=== PATIENT | male | born 1995 | race African-American/Black ===

== ENCOUNTER 2021-03-07 23:30 | Emergency (ER) | payer SELFPAY ==
--- NOTE | 2021-03-08 02:36 | EDPHYS ---
Physician Documentation [facility] Name: Armin Bonner Age: 25 yrs Sex: Male : 1995 Arrival Date: 03/07/2021 Time: 23:35 Bed 5 Private MD: ED Physician Collin Cuello HPI: 03/08 01:50 This 25 yrs old Male presents to ER via Ambulatory with complaints of Cough, Sore mh7 Throat. 01:50 The patient or guardian reports cough, that is intermittent, described as mild, with no mh7 sputum, Congestion, runny nose, sore throat. 01:50 Onset: The symptoms/episode began/occurred 2 day(s) ago. Severity of symptoms: At their mh7 worst the symptoms were mild, last night, in the emergency department the symptoms have improved, markedly. 01:50 Modifying factors: The symptoms are alleviated by nothing, the symptoms are aggravated mh7 by nothing. Associated signs and symptoms: Pertinent positives: rhinorrhea, sore throat, Pertinent negatives: chest pain, diarrhea, ear ache, fever, nausea, vomiting. States that he had exposure to a friend who tested Covid positive.. Historical: - Allergies: 00:01 No Known Allergies; ca1 - Home Meds: 00:01 None [Active]; ca1 - PMHx: 00:01 None; ca1 - PSHx: 00:01 None; ca1 - Immunization history:: Client reports having NOT received the Covid vaccine. - Social history:: Smoking status: Reported history of juuling and/or vaping. Patient uses alcohol, occasionally. ROS: 01:50 Eyes: Negative for injury, pain, redness, and discharge, Neck: Negative for injury, mh7 pain, and swelling, Cardiovascular: Negative for chest pain, palpitations, and edema, Abdomen/GI: Negative for abdominal pain, nausea, vomiting, diarrhea, and constipation, Back: Negative for injury and pain, : Negative for injury, bleeding, discharge, and swelling, MS/Extremity: Negative for injury and deformity, Skin: Negative for injury, rash, and discoloration, Neuro: Negative for headache, weakness, numbness, tingling, and seizure, Psych: Negative for depression, anxiety, suicide ideation, homicidal ideation, and hallucinations, Allergy/Immunology: Negative for hives, rash, and allergies, Endocrine: Negative for neck swelling, polydipsia, polyuria, polyphagia, and marked weight changes, Hematologic/Lymphatic: Negative for swollen nodes, abnormal bleeding, and unusual bruising. Exam: 01:50 Constitutional: This is a well developed, well nourished patient who is awake, alert, mh7 and in no acute distress. Head/Face: Normocephalic, atraumatic. Eyes: Pupils equal round and reactive to light, extra-ocular motions intact. Lids and lashes normal. Conjunctiva and sclera are non-icteric and not injected. Cornea within normal limits. Periorbital areas with no swelling, redness, or edema. ENT: Nares patent. No nasal discharge, no septal abnormalities noted. Tympanic membranes are normal and external auditory canals are clear. Oropharynx with no redness, swelling, or masses, exudates, or evidence of obstruction, uvula midline. Mucous membranes moist. Neck: Trachea midline, no thyromegaly or masses palpated, and no cervical lymphadenopathy. Supple, full range of motion without nuchal rigidity, or vertebral point tenderness. No Meningismus. Chest/axilla: Normal chest wall appearance and motion. Nontender with no deformity. No lesions are appreciated. Cardiovascular: Regular rate and rhythm with a normal S1 and S2. No gallops, murmurs, or rubs. Normal PMI, no JVD. No pulse deficits. Respiratory: Lungs have equal breath sounds bilaterally, clear to auscultation and percussion. No rales, rhonchi or wheezes noted. No increased work of breathing, no retractions or nasal flaring. Abdomen/GI: Soft, non-tender, with normal bowel sounds. No distension or tympany. No guarding or rebound. No evidence of tenderness throughout. Back: No spinal tenderness. No costovertebral tenderness. Full range of motion. Skin: Warm, dry with normal turgor. Normal color with no rashes, no lesions, and no evidence of cellulitis. MS/ Extremity: Pulses equal, no cyanosis. Neurovascular intact. Full, normal range of motion. Neuro: Awake and alert, GCS 15, oriented to person, place, time, and situation. Cranial nerves II-XII grossly intact. Motor strength 5/5 in all extremities. Sensory grossly intact. Cerebellar exam normal. Normal gait. Psych: Awake, alert, with orientation to person, place and time. Behavior, mood, and affect are within normal limits. Vital Signs: 03/07 23:58 BP 104 / 56; Pulse 80; Resp 18 S; Temp 98.6(TE); Pulse Ox 100% on R/A; Weight 81.65 kg ca1 (R); Height 5 ft. 8 in. (172.72 cm) (R); 23:58 Body Mass Index 27.37 (81.65 kg, 172.72 cm) ca1 MDM: 03/08 02:34 Differential Diagnosis: Bronchitis Upper Respiratory Infection Pharyngitis Allergic mh7 Rhinitis Viral Syndrome. Data reviewed: vital signs, nurses notes, lab test result(s), Flu: negative Rapid strep negative, Covid negative. Data interpreted: Pulse oximetry: on room air is 100 %. Interpretation: normal. Counseling: I had a detailed discussion with the patient and/or guardian regarding: the historical points, exam findings, and any diagnostic results supporting the discharge/admit diagnosis, lab results, the need for outpatient follow up, to return to the emergency department if symptoms worsen or persist or if there are any questions or concerns that arise at home. Response to treatment: the patient's symptoms have markedly improved after treatment. Refusal of service: The patient/guardian displays adequate decision making capability and despite a detailed discussion of alternatives, benefits, risks, and consequences refuses: Medications. 02:35 Patient medically screened. [facility] 03/07 23:57 Order name: Flu [facility] 03/07 23:57 Order name: Strep [facility] 03/07 23:58 Order name: Influenza Screen (A ; Complete Time: 02:27 EDID 03/07 23:58 Order name: Group A Streptococcus Rapid Sc; Complete Time: 02:27 EDID 03/08 01:03 Order name: Throat Culture [facility] 03/08 01:40 Order name: SARS-COV-2 RT PCR; Complete Time: 02:27 EDID Administered Medications: No medications were administered Disposition Summary: 03/08/21 02:35 Discharge Ordered Location: Home [facility] Problem: new [facility] Symptoms: have improved [facility] Condition: Stable [facility] Diagnosis - Viral Syndrome [facility] Followup: [facility] - With: Private Physician - When: 1 - 2 days - Reason: Worsening of condition, Recheck today's complaints, Continuance of care, Re-evaluation by your physician Discharge Instructions: - Discharge Summary Sheet mh7 - Viral Respiratory Infection, [id number] [facility] Forms: - Medication Reconciliation Form 7 - Thank You Letter 7 - Antibiotic Education [facility] - Prescription Opioid Use [facility] Signatures: Dispatcher [employer] EDLashaun Leblanc RN RN ca1 Collin Cuello MD MD [facility] Corrections: (The following items were deleted from the chart) 00:24 08 23:58 CORONAVIRUS+MR.LAB.BRZ ordered. EDID EDMS
--- NOTE | 2021-03-08 02:36 | ER ---
Nurse's Notes [facility] Name: Armin Bonner Age: 25 yrs Sex: Male : 1995 Arrival Date: 03/07/2021 Time: 23:35 Bed 5 Private MD: Diagnosis: Viral Syndrome Presentation: 03/07 23:58 Chief complaint: Patient states: body aches, cough, congestion, sore throat, chills ca1 since yesterday. Exposure to Covid+ person. Coronavirus screen: Client denies travel out of the [place] in the last 14 days. chills, congestion, cough unrelated to allergies, sore throat, Client presents with at least one sign or symptom that may indicate coronavirus-19. Standard/surgical mask placed on the client. Provider contacted for isolation considerations. Ebola Screen: Patient negative for fever greater than or equal to 101.5 degrees Fahrenheit, and additional compatible Ebola Virus Disease symptoms Patient denies exposure to infectious person. Patient denies travel to an Ebola-affected area in the 21 days before illness onset. No symptoms or risks identified at this time. Initial Sepsis Screen: Does the patient meet any 2 criteria? No. Patient's initial sepsis screen is negative. Does the patient have a suspected source of infection? No. Patient's initial sepsis screen is negative. Risk Assessment: Do you want to hurt yourself or someone else? Patient reports no desire to harm self or others. Onset of symptoms was March 06, 2021. 23:58 Method Of Arrival: Ambulatory ca1 23:58 Acuity: ELSIE 4 ca1 Historical: - Allergies: 03/08 00:01 No Known Allergies; ca1 - Home Meds: 00:01 None [Active]; ca1 - PMHx: 00:01 None; ca1 - PSHx: 00:01 None; ca1 - Immunization history:: Client reports having NOT received the Covid vaccine. - Social history:: Smoking status: Reported history of juuling and/or vaping. Patient uses alcohol, occasionally. Screenin:01 Abuse screen: Denies threats or abuse. Nutritional screening: No deficits noted. ea Tuberculosis screening: No symptoms or risk factors identified. Fall Risk None identified. Assessment: 01:40 General: Appears in no apparent distress. comfortable, Behavior is calm, cooperative. jb4 Pain: Complains of pain in body aches, soar throat. Pain does not radiate. Pain currently is 2 out of 10 on a pain scale. Quality of pain is described as aching. Neuro: Level of Consciousness is awake, alert, obeys commands, Oriented to person, place, time, situation. Cardiovascular: Patient's skin is warm and dry. Respiratory: Airway is patent Respiratory effort is even, unlabored, Respiratory pattern is regular, symmetrical. GI: No signs and/or symptoms were reported involving the gastrointestinal system. : No signs and/or symptoms were reported regarding the genitourinary system. EENT: Reports pain in throat. Derm: Skin is intact, Skin is dry, Skin is normal, Skin temperature is warm. Musculoskeletal: Circulation, motion, and sensation intact. Range of motion: intact in all extremities. 02:45 Reassessment: Patient and/or family updated on plan of care and expected duration. Pain ea level reassessed. Patient is alert, oriented x 3, equal unlabored respirations, skin warm/dry/pink. Discharge instruction given to patient verbalized the understaging of instruction. Pt left ED ambulatory tolerating well. Vital Signs: 08 23:58 BP 104 / 56; Pulse 80; Resp 18 S; Temp 98.6(TE); Pulse Ox 100% on R/A; Weight 81.65 kg ca1 (R); Height 5 ft. 8 in. (172.72 cm) (R); 23:58 Body Mass Index 27.37 (81.65 kg, 172.72 cm) ca1 ED Course: 23:35 Patient arrived in ED. bp1 03/08 00:00 Triage completed. ca1 00:01 Arm band placed on right wrist. ca1 01:42 Collin Cuello MD is Attending Physician. mh7 01:43 Bar Mullen, RN is Primary Nurse. jb4 02:01 Patient has correct armband on for positive identification. Bed in low position. Call ea light in reach. 02:12 No provider procedures requiring assistance completed. Patient did not have IV access jb4 during this emergency room visit. Administered Medications: No medications were administered Outcome: 02:35 Discharge ordered by . [facility] 02:46 Discharged to home ambulatory. ea 02:46 Condition: stable 02:46 Discharge instructions given to patient, Instructed on discharge instructions, follow up and referral plans. 02:46 Patient left the ED. ea Signatures: Bar Mullen RN RN jb4 Emily Serna RN RN ea Acob, Cheryl, RN RN ca1 Deepika López Maurice, MD MD mh7
[2021-03-08 03:02] VITALS: BP 104/56; TEMP 98.6; O2SAT 100
== END 2021-03-08 02:46 | disposition home or self-care (01) ==
LOC: ER 23:30
DX: B34.9 Viral infection, unspecified (principal); Z20.822 Contact with and (suspected) exposure to COVID-19
CPT/HCPCS: 87070; 87081; 87804; 99281; U0003

== ENCOUNTER 2022-09-04 12:10 | Emergency (ER) | payer SELFPAY ==
--- OUTSIDE RECORDS SUMMARY | 2022-09-04 12:12 | XMS REPORT | Continuity of Care Document ---
:1995 Author Organization [facility] t Address [address] [place] [address] Dr. Loyola [address] [place] [id number] Care Team Providers Name Role Phone Unavailable Unavailable Unavailable Problems This patient has no known problems. Allergies, Adverse Reactions, Alerts This patient has no known allergies or adverse reactions. Medications This patient has no known medications. Procedures This patient has no known procedures. Results This patient has no known results.
[2022-09-04] MEDS ORDERED: KETOROLAC 30 MG/ML INJ ONE (13:26)
--- NOTE | 2022-09-04 13:29 | RAD REPORT ---
EXAM DESCRIPTION: RAD - Knee Right 3 View - 09/04/2022 1:22 pm CLINICAL HISTORY: injury Pain and swelling COMPARISON: No comparisons FINDINGS: No fracture or dislocation seen. Trace suprapatellar joint fluid.
--- NOTE | 2022-09-04 13:29 | RAD REPORT ---
EXAM DESCRIPTION: RAD - Foot Left 3 View - 09/04/2022 1:22 pm CLINICAL HISTORY: fall COMPARISON: Knee Right 3 View dated 09/04/2022 FINDINGS: No fracture or dislocation evident.
--- NOTE | 2022-09-04 14:07 | EDPHYS ---
Physician Documentation [facility] Name: Armin Bonner Age: 27 yrs Sex: Male : 1995 Arrival Date: 09/04/2022 Time: 12:13 Bed 11 Private MD: ED Physician Burak Doty HPI: 09/04 12:41 This 27 yrs old Black Male presents to ER via Ambulatory with complaints of Knee Pain - jmm right, Foot Pain - left. 12:41 Is a 27-year-old male with no chronic medical conditions presents emerged part with m complaints of right knee pain and left foot pain initially was injured apparently a week ago with someone fell on top of him while playing basketball. Patient states that he began to feel better so he decided to play basketball again yesterday which reaggravated both his knee pain and his left foot pain. Denies any other injuries.. Historical: - Allergies: 12:29 No Known Allergies; vg1 - Home Meds: 12:29 None [Active]; vg1 - PMHx: 12:29 None; vg1 - PSHx: 12:29 None; vg1 - Immunization history:: Client reports having NOT received the Covid vaccine. - Social history:: Smoking status: Reported history of juuling and/or vaping. ROS: 12:41 Constitutional: Negative for fever, chills, and weight loss, Cardiovascular: Negative jmm for chest pain, palpitations, and edema, Respiratory: Negative for shortness of breath, cough, wheezing, and pleuritic chest pain. 12:41 MS/extremity: Positive for injury or acute deformity. 12:41 All other systems are negative. Exam: 12:41 Constitutional: This is a well developed, well nourished patient who is awake, alert, jmm and in no acute distress. Head/Face: atraumatic. Eyes: EOMI, no conjunctival erythema appreciated ENT: Moist Mucus Membranes Neck: Trachea midline, Supple Chest/axilla: Normal chest wall appearance and motion. Cardiovascular: Regular rate and rhythm. No edema appreciated Respiratory: Normal respirations, no respiratory distress appreciated Abdomen/GI: Non distended Back: Normal ROM Skin: General appearance color normal 12:41 Musculoskeletal/extremity: Right medial and lateral pain on palpation, compartments are soft, painful flexion and extension, no erythema and induration, full distal dorsalis pulse, neurovascular tact. Pain elicited on palpation of the left dorsum of the foot, no obvious deformity, full dorsalis pedis pulse, compartments are soft, neurovascular intact. 12:41 Skin: Appearance: Color: normal in color, abscess. 12:41 Neuro: Orientation: is normal, Mentation: is normal, Memory: is normal. Vital Signs: 12:28 Weight 72.57 kg (R); Height 5 ft. 8 in. (172.72 cm); Pain 10/10; vg1 12:31 BP 114 / 75; Pulse 75; Resp 16; Temp 98.5(TE); Pulse Ox 98% on R/A; vg1 14:24 BP 121 / 82; Pulse 88; Resp 16; Pulse Ox 100% on R/A; mb9 12:28 Body Mass Index 24.33 (72.57 kg, 172.72 cm) vg1 MDM: 12:41 Patient medically screened. [facility] 12:41 Independent interpretation of the following test(s) in the Emergency Department. [facility] 14:05 Data reviewed: vital signs, nurses notes. Counseling: I had a detailed discussion with ladonna the patient and/or guardian regarding: the historical points, exam findings, and any diagnostic results supporting the discharge/admit diagnosis, the need for outpatient follow up, to return to the emergency department if symptoms worsen or persist or if there are any questions or concerns that arise at home. 14:36 Independent interpretation of the following test(s) in the Emergency Department X-Ray: ladonna My interpretation is No fracture appreciated. ED course: X-rays are negative. Patient given a right knee immobilizer. Advised follow with orthopedics and otherwise given strict return precautions. Patient understood agrees to plan of care.. 09/04 12:46 Order name: Knee Right 3 View XRAY; Complete Time: 13:33 [facility] 09/04 12:46 Order name: Foot Left 3 View XRAY; Complete Time: 13:33 [facility] 09/04 13:33 Order name: Knee Immobilizer; Complete Time: 14:16 [facility] Administered Medications: 13:25 Drug: Ketorolac 30 mg Route: IM; Site: right deltoid; vg1 Disposition: 18:09 Co-signature as Attending Physician, Burak Doty MD I reviewed the patient's care rn provided by the Advanced Practice Provider and agree with the diagnosis and treatment plan. Disposition Summary: 09/04/22 14:06 Discharge Ordered Location: Home [facility] Condition: Stable jm Diagnosis - Other internal derangements of right knee jmm - Sprain of foot [facility] Followup: [facility] - With: Roderick Martins MD - When: 2 - 3 days - Reason: Recheck today's complaints, Continuance of care, Re-evaluation by your physician Discharge Instructions: - Discharge Summary Sheet [facility] - Foot Sprain jm - Acute Knee Pain, Adult [facility] Forms: - Work release form [facility] - Medication Reconciliation Form [facility] - Thank You Letter [facility] - Antibiotic Education [facility] - Prescription Opioid Use [facility] Prescriptions: - Diclofenac Sodium 75 mg Oral Tablet Sustained Release - take 1 tablet by ORAL route 2 times per day; 30 tablet; Refills: 0, Product [facility] Selection Permitted - orphenadrine citrate 100 mg Oral Tablet Sustained Release - take 1 tablet by ORAL route 2 times per day As needed; 20 tablet; Refills: 0, [facility] Product Selection Permitted Signatures: Dispatcher [employer] Jose A Cain PA PA jmm Nieto, Roman, MD MD rn Nessa Hidalgo RN RN vg1
--- NOTE | 2022-09-04 14:07 | ER ---
Nurse's Notes [facility] Name: Armin Bonner Age: 27 yrs Sex: Male : 1995 Arrival Date: 09/04/2022 Time: 12:13 Bed 11 Private MD: Diagnosis: Other internal derangements of right knee;Sprain of foot Presentation: 09/04 12:28 Chief complaint: Patient states: was playing basketball about a week ago and fell on vg1 Right knee and then yesterday was playing basketball and now have Left foot pain when stepping down. Coronavirus screen: Vaccine status: Patient reports being unvaccinated. Client denies travel out of the [place] in the last 14 days. Ebola Screen: Patient negative for fever greater than or equal to 101.5 degrees Fahrenheit, and additional compatible Ebola Virus Disease symptoms Patient denies exposure to infectious person. Initial Sepsis Screen: Does the patient meet any 2 criteria?. Onset of symptoms was August 28, 2022. 12:28 Method Of Arrival: Ambulatory vg1 12:28 Acuity: ELSIE 4 vg1 12:31 Initial Sepsis Screen: Does the patient have a suspected source of infection? No. vg1 Patient's initial sepsis screen is negative. Triage Assessment: 12:29 General: Appears uncomfortable, Behavior is calm, cooperative. Pain: Complains of pain vg1 in Right knee, left foot Pain currently is 10 out of 10 on a pain scale. Pain began x 1 week. Musculoskeletal: Circulation, motion, and sensation intact. Historical: - Allergies: 12:29 No Known Allergies; vg1 - Home Meds: 12:29 None [Active]; vg1 - PMHx: 12:29 None; vg1 - PSHx: 12:29 None; vg1 - Immunization history:: Client reports having NOT received the Covid vaccine. - Social history:: Smoking status: Reported history of juuling and/or vaping. Screenin:30 [facility] ED Fall Risk Assessment (Adult) History of falling in the last 3 months, vg1 including since admission No falls in past 3 months (0 pts) Confusion or Disorientation No (0 pts) Intoxicated or Sedated No (0 pts) Impaired Gait Yes (1 pt) Mobility Assist Device Used No (0 pt) Altered Elimination No (0 pt) Score/Fall Risk Level 0 - 2 = Low Risk Oriented to surroundings, Maintained a safe environment, Educated pt \T\ family on fall prevention, incl call for assistance when getting out of bed, Assessed \T\ reinforced patient's understanding of fall precautions. Abuse screen: Denies threats or abuse. Nutritional screening: No deficits noted. Tuberculosis screening: No symptoms or risk factors identified. Assessment: 12:31 Reassessment: SEE TRIAGE. vg1 13:26 Reassessment: Patient appears in no apparent distress at this time. No changes from vg1 previously documented assessment. Patient and/or family updated on plan of care and expected duration. Pain level reassessed. Patient is alert, oriented x 3, equal unlabored respirations, skin warm/dry/pink. 13:57 Reassessment: Patient and/or family updated on plan of care and expected duration. Pain mb9 level reassessed. Patient is alert, oriented x 3, equal unlabored respirations, skin warm/dry/pink. Patient states symptoms have improved. General: Appears comfortable, Behavior is cooperative. Pain: Complains of pain in left foot and right knee Pain currently is 8 out of 10 on a pain scale. Vital Signs: 12:28 Weight 72.57 kg (R); Height 5 ft. 8 in. (172.72 cm); Pain 10/10; vg1 12:31 BP 114 / 75; Pulse 75; Resp 16; Temp 98.5(TE); Pulse Ox 98% on R/A; vg1 14:24 BP 121 / 82; Pulse 88; Resp 16; Pulse Ox 100% on R/A; mb9 12:28 Body Mass Index 24.33 (72.57 kg, 172.72 cm) vg1 ED Course: 12:13 Patient arrived in ED. am2 12:17 Jose A Butler PA is PHCP. jmm 12:17 Burak Doty MD is Attending Physician. jmm 12:29 Triage completed. vg1 12:29 Arm band placed on. vg1 12:30 Patient has correct armband on for positive identification. Bed in low position. Call vg1 light in reach. 13:22 Nessa Hidalgo, RN is Primary Nurse. vg1 13:24 Knee Right 3 View XRAY In Process Unspecified. EDMS 13:24 Foot Left 3 View XRAY In Process Unspecified. EDMS 14:06 Roderick Martins MD is Referral Physician. ladonna 14:24 No provider procedures requiring assistance completed. Patient did not have IV access mb9 during this emergency room visit. Administered Medications: 13:25 Drug: Ketorolac 30 mg Route: IM; Site: right deltoid; vg1 Medication: 12:31 VIS not applicable for this client. vg1 Outcome: 14:06 Discharge ordered by . ladonna 14:25 Discharged to home ambulatory. mb9 14:25 Condition: stable 14:25 Discharge instructions given to patient, Instructed on discharge instructions, follow up and referral plans. Demonstrated understanding of instructions, follow-up care, medications, Prescriptions given X 2. 14:25 Patient left the ED. mb9 Signatures: Dispatcher [employer] EDMS Jose A Butler PA PA jmm Moreno, Amanda am2 Garcia, Victoria, RN RN vg1 Kiley Tan, RN RN mb9
[2022-09-04 14:46] VITALS: TEMP 98.5
[2022-09-04 14:47] VITALS: BP 121/82; O2SAT 100
== END 2022-09-04 14:25 | disposition home or self-care (01) ==
LOC: ER 12:10
DX: M23.8X1 Other internal derangements of right knee (principal); S93.602A Unspecified sprain of left foot, initial encounter

== ENCOUNTER 2022-09-28 18:19 | Emergency (ER) | payer SELFPAY ==
--- OUTSIDE RECORDS SUMMARY | 2022-09-28 18:21 | XMS REPORT | Continuity of Care Document ---
:1995 Author Organization [facility] t Address [address] [place] [address] Dr. Loy[address] [place] [id number] Care Team Providers Name Role Phone Unavailable Unavailable Unavailable Problems This patient has no known problems. Allergies, Adverse Reactions, Alerts This patient has no known allergies or adverse reactions. Medications This patient has no known medications. Procedures This patient has no known procedures. Results This patient has no known results.
[2022-09-28] MEDS ORDERED: MORPHINE 4 MG/ML SYR ONE (18:51)
[2022-09-28] MEDS ORDERED: KETOROLAC 30 MG/ML INJ ONE (18:51)
[2022-09-28] MEDS ORDERED: LIDOCAINE 4% PATCH ONE (18:52)
[2022-09-28 19:17] LABS: Urine Blood Negative (Negative); Urine Glucose Negative (Negative); Urine Protein Negative (Negative); Urine pH 8.5 (5.0-7.0)
[2022-09-28 19:38] LABS: Urine Bacteria None Seen /HPF (<20); Urine Mucus Slight /HPF (None Seen); Urine RBC <5 /HPF (None Seen)
--- NOTE | 2022-09-28 19:40 | RAD REPORT ---
EXAM DESCRIPTION: RAD - Lumbar Spine 3 Views - 09/28/2022 7:19 pm CLINICAL HISTORY: Back pain FINDINGS: No fracture or dislocation is seen. Slight posterior subluxation L5 on S1. Spina bifida occulta L5
--- NOTE | 2022-09-28 21:01 | ER ---
Nurse's Notes [facility] Name: Armin Bonner Age: 27 yrs Sex: Male : 1995 Arrival Date: 09/28/2022 Time: 18:28 Bed 13 Private MD: Diagnosis: Low back pain Presentation: 09/28 18:20 Chief complaint: EMS states: picked patient up from home. patient complaining of lower db back pain x 1 week that increased today after bending over to pick something up. States back tightened up. Coronavirus screen: Vaccine status: Patient reports being unvaccinated. Client denies travel out of the [place] in the last 14 days. At this time, the client does not indicate any symptoms associated with coronavirus-19. Ebola Screen: Patient negative for fever greater than or equal to 101.5 degrees Fahrenheit, and additional compatible Ebola Virus Disease symptoms Patient denies exposure to infectious person. Patient denies travel to an Ebola-affected area in the 21 days before illness onset. No symptoms or risks identified at this time. Initial Sepsis Screen: Does the patient meet any 2 criteria? No. Patient's initial sepsis screen is negative. Does the patient have a suspected source of infection? No. Patient's initial sepsis screen is negative. Risk Assessment: Do you want to hurt yourself or someone else? Patient reports no desire to harm self or others. Onset of symptoms was September 28, 2022. 18:20 Method Of Arrival: EMS db 18:20 Acuity: ELSIE 4 db Triage Assessment: 18:32 General: Appears in no apparent distress. uncomfortable, Behavior is calm, cooperative. db Pain: Complains of pain in back. Neuro: No deficits noted. Level of Consciousness is awake, alert, obeys commands, Oriented to person, place, time, situation, Moves all extremities. Speech is normal. Musculoskeletal: Circulation, motion, and sensation intact. Capillary refill < 3 seconds, Reports pain in back. Historical: - Allergies: 18:32 No Known Allergies; db - Home Meds: 18:32 None [Active]; db - PMHx: 18:32 None; db - PSHx: 18:32 None; db - Immunization history:: Adult Immunizations unknown. - Social history:: Smoking status: Reported history of juuling and/or vaping. Screenin:34 [facility] ED Fall Risk Assessment (Adult) History of falling in the last 3 months, db including since admission No falls in past 3 months (0 pts) Confusion or Disorientation No (0 pts) Intoxicated or Sedated No (0 pts) Impaired Gait No (0 pts) Mobility Assist Device Used No (0 pt) Altered Elimination No (0 pt) Score/Fall Risk Level 0 - 2 = Low Risk Oriented to surroundings, Maintained a safe environment. Abuse screen: Denies threats or abuse. Denies injuries from another. Nutritional screening: No deficits noted. Tuberculosis screening: No symptoms or risk factors identified. Assessment: 18:34 Reassessment: Patient appears in no apparent distress at this time. Patient and/or db family updated on plan of care and expected duration. Pain level reassessed. Patient is alert, oriented x 3, equal unlabored respirations, skin warm/dry/pink. patient denies recent injury or recent fall. Neuro: No deficits noted. Level of Consciousness is awake, alert, obeys commands, Oriented to person, place, time, situation, Moves all extremities. 21:36 Reassessment: Patient denies pain at this time. Patient states feeling better. Patient ke1 states symptoms have improved. Vital Signs: 18:20 BP 142 / 86; Pulse 84; Resp 16; Temp 97.8(O); Pulse Ox 98% ; Weight 72.57 kg; Height 5 db ft. 8 in. (172.72 cm); Pain 10/10; 21:37 BP 138 / 79; Pulse 78; Resp 17; Temp 97.8; Pulse Ox 100% ; Pain 0/10; ke1 18:20 Body Mass Index 24.33 (72.57 kg, 172.72 cm) db ED Course: 18:28 Patient arrived in ED. db 18:28 Kvng Colmenarse PA is PHCP. cp 18:28 Kvng Pete MD is Attending Physician. cp 18:32 Triage completed. db 18:32 Arm band placed on Patient placed in an exam room, on a stretcher, on pulse oximetry. db 18:36 Cassandra Newmna, MARI is Primary Nurse. db 19:17 Urine Microscopic Only Sent. ke1 19:21 XRAY Lumbar Spine (3 Views) In Process Unspecified. EDMS 19:30 Bed in low position. Call light in reach. ke1 21:36 No provider procedures requiring assistance completed. Patient did not have IV access ke1 during this emergency room visit. Administered Medications: 07:00 Drug: Lidoderm Patch 5 % (700 mg/patch) 1 patches {Note: back.} Route: Topical; Site: db affected area; 07:05 Drug: morphine 5 mg Route: IM; Site: right deltoid; db 19:18 Follow up: Response: Pain is decreased ke1 07:06 Drug: Ketorolac 30 mg Route: IM; Site: left deltoid; db 20:00 Follow up: Response: Pain is decreased ke1 Medication: 21:37 VIS not applicable for this client. ke1 Outcome: 21:01 Discharge ordered by . anita 21:37 Discharged to home ambulatory. ke1 21:37 Condition: good 21:37 Discharge instructions given to patient. 21:38 Patient left the ED. ke1 Signatures: Dispatcher [employer] EDMS Kvng Colmenares PA PA cp Ebrottie, Kouassi, RN RN ke1 Cassandra Newman RN RN db Corrections: (The following items were deleted from the chart) 18:35 18:34 Reassessment: Patient appears in no apparent distress at this time. Patient db and/or family updated on plan of care and expected duration. Pain level reassessed. Patient is alert, oriented x 3, equal unlabored respirations, skin warm/dry/pink. db
--- NOTE | 2022-09-28 21:01 | EDPHYS ---
Physician Documentation [facility] Name: Armin Bonner Age: 27 yrs Sex: Male : 1995 Arrival Date: 09/28/2022 Time: 18:28 Bed 13 Private MD: ED Physician Kvng Pete HPI: 09/28 18:39 This 27 yrs old Black Male presents to ER via EMS with complaints of Back Pain. cp 18:39 The patient presents with pain that is acute. cp 18:39 The symptoms are located in the low back. Onset: The symptoms/episode began/occurred 1 cp week(s) ago, and became worse today, after bending over. The pain does not radiate. Associated signs and symptoms: Pertinent negatives: abdominal pain, constipation, dysuria, fever, incontinence, numbness, vomiting, weakness. Severity of symptoms: in the emergency department the symptoms are unchanged, despite EMS interventions. Historical: - Allergies: 18:32 No Known Allergies; db - Home Meds: 18:32 None [Active]; db - PMHx: 18:32 None; db - PSHx: 18:32 None; db - Immunization history:: Adult Immunizations unknown. - Social history:: Smoking status: Reported history of juuling and/or vaping. ROS: 18:45 Constitutional: Negative for body aches, chills, fever, poor PO intake. cp 18:45 Cardiovascular: Negative for chest pain, edema, palpitations. cp 18:45 Abdomen/GI: Negative for abdominal pain, vomiting, diarrhea, constipation, bowel incontinence. 18:45 Back: Positive for pain at rest, pain with movement, of the low back. 18:45 : Negative for urinary symptoms, hematuria, difficulty urinating, bladder incontinence, testicular pain 18:45 Eyes: Negative for injury, pain, redness, and discharge. cp 18:45 Respiratory: Negative for cough, shortness of breath, wheezing. 18:45 Neuro: Negative for altered mental status, dizziness, numbness, syncope, weakness. cp 18:45 All other systems are negative. Exam: 18:50 Constitutional: The patient appears in no acute distress, alert, awake, cp non-diaphoretic, non-toxic, well developed, well nourished, in obvious pain, uncomfortable. 18:50 Head/Face: Normocephalic, atraumatic. cp 18:50 Eyes: Periorbital structures: appear normal, Conjunctiva: normal, no exudate, no cp injection, Sclera: no appreciated abnormality, Lids and lashes: appear normal, bilaterally. 18:50 ENT: External ear(s): are unremarkable, Nose: is normal, Mouth: Lips: moist, Oral mucosa: moist, Posterior pharynx: Airway: no evidence of obstruction, patent. 18:50 Chest/axilla: Inspection: normal, Palpation: is normal, no crepitus, no tenderness. cp 18:50 Cardiovascular: Rate: normal, Rhythm: regular, Edema: is not appreciated, JVD: is not appreciated. 18:50 Respiratory: the patient does not display signs of respiratory distress, Respirations: normal, no use of accessory muscles, no retractions, labored breathing, is not present, Breath sounds: are clear throughout, no decreased breath sounds, no stridor, no wheezing. 18:50 Abdomen/GI: Inspection: abdomen appears normal, Palpation: abdomen is soft and non-tender, in all quadrants. 18:50 Back: pain, that is severe, of the lumbar area, ROM is painful, with all movement. 18:50 Neuro: Orientation: to person, place \T\ time. Mentation: is normal, Motor: moves all fours, strength is normal, Sensation: is normal, Deep tendon reflexes are 2+ (normal) in the right patellar and left patellar. Vital Signs: 18:20 BP 142 / 86; Pulse 84; Resp 16; Temp 97.8(O); Pulse Ox 98% ; Weight 72.57 kg; Height 5 db ft. 8 in. (172.72 cm); Pain 10/10; 21:37 BP 138 / 79; Pulse 78; Resp 17; Temp 97.8; Pulse Ox 100% ; Pain 0/10; ke1 18:20 Body Mass Index 24.33 (72.57 kg, 172.72 cm) db MDM: 18:28 Patient medically screened. cp 19:00 Differential diagnosis: Cholelithiasis chronic back pain, Pyelonephritis spinal injury, cp vertebral fracture, caudae equina, spinal stenosis. 21:00 Data reviewed: vital signs, nurses notes, lab test result(s), radiologic studies, plain cp films. 21:00 Consideration of Admission/Observation Escalation of care including cp admission/observation considered. Test considered but Not performed: MRI: lumbar spine. Counseling: I had a detailed discussion with the patient and/or guardian regarding: the historical points, exam findings, and any diagnostic results supporting the discharge/admit diagnosis, lab results, radiology results, the need for outpatient follow up, a family practitioner, to return to the emergency department if symptoms worsen or persist or if there are any questions or concerns that arise at home. Response to treatment: the patient's symptoms have markedly improved after treatment, and as a result, I will continue to observe the patient. 09/28 18:29 Order name: Urine Microscopic Only; Complete Time: 19:40 cp 09/28 19:17 Order name: Urine Dipstick-Ancillary; Complete Time: 19:40 EDMS 09/28 19:40 Interpretation: Normal except: UPH 8.5. 09/28 18:30 Order name: XRAY Lumbar Spine (3 Views); Complete Time: 19:55 cp 09/28 19:55 Interpretation: Report reviewed. 09/28 18:29 Order name: Urine Dipstick-Ancillary (obtain specimen); Complete Time: 19:17 cp 09/28 20:48 Order name: Misc. Order: ambulate; Complete Time: 21:36 cp Administered Medications: 07:00 Drug: Lidoderm Patch 5 % (700 mg/patch) 1 patches {Note: back.} Route: Topical; Site: db affected area; 07:05 Drug: morphine 5 mg Route: IM; Site: right deltoid; db 19:18 Follow up: Response: Pain is decreased ke1 07:06 Drug: Ketorolac 30 mg Route: IM; Site: left deltoid; db 20:00 Follow up: Response: Pain is decreased ke1 Disposition Summary: 09/28/22 21:01 Discharge Ordered Location: Home cp Problem: new cp Symptoms: have improved cp Condition: Stable cp Diagnosis - Low back pain cp Followup: cp - With: Private Physician - When: 2 - 3 days - Reason: Recheck today's complaints Discharge Instructions: - Discharge Summary Sheet cp - Acute Back Pain, Adult cp - Heat Therapy cp - Back Exercises cp Forms: - Medication Reconciliation Form cp - Thank You Letter cp - Antibiotic Education cp - Prescription Opioid Use cp - Work release form mb9 Prescriptions: - Cyclobenzaprine 10 mg Oral Tablet - take 1 tablet by ORAL route every 8 hours As needed; 20 tablet; Refills: 0, cp Product Selection Permitted - Diclofenac Sodium 75 mg Oral tablet,delayed release (DR/EC) - take 1 tablet by ORAL route 2 times per day; 20 tablet; Refills: 0, Product cp Selection Permitted - Medrol (Christ) 4 mg Oral Tablets, Dose Pack - take 1 tablet by ORAL route as directed - follow package instructions; 1 cp packet; Refills: 0, Product Selection Permitted Signatures: Dispatcher [employer] EDKvng Iglesias PA PA cp Benton, Danielle, RN RN db Aida Frausto RN ke1
[2022-09-28 22:15] VITALS: TEMP 97.8
[2022-09-28 22:16] VITALS: BP 138/79; O2SAT 100
== END 2022-09-28 21:38 | disposition home or self-care (01) ==
LOC: ER 18:19
DX: M54.50 Low back pain, unspecified (principal)
CPT/HCPCS: 72100; 81003; 81015; 96372; 99284; J2001

== ENCOUNTER 2023-01-31 18:29 | Emergency (ER) | payer SELFPAY ==
--- OUTSIDE RECORDS SUMMARY | 2023-01-31 18:31 | XMS REPORT | Continuity of Care Document ---
:1995 Author Organization [facility] t Address [address] [place] [id number] Care Team Providers Name Role Phone Unavailable Unavailable Unavailable Problems This patient has no known problems. Allergies, Adverse Reactions, Alerts This patient has no known allergies or adverse reactions. Medications This patient has no known medications. Procedures This patient has no known procedures. Results This patient has no known results.
--- NOTE | 2023-01-31 18:43 | EDPHYS ---
Physician Documentation [facility] Name: Armin Bonner Age: 27 yrs Sex: Male : 1995 Arrival Date: 01/31/2023 Time: 18:29 Bed IW2 Private MD: ED Physician Burak Doty HPI: 01/31 18:40 This 27 yrs old Black Male presents to ER via Ambulatory with complaints of Low Back rn Pain. 18:40 The patient presents with pain that is chronic. The symptoms are located in the low rn back. The pain does not radiate. Onset: The symptoms/episode began/occurred 1 week(s) ago. Modifying factors: The patient symptoms are alleviated by remaining still, rest, specific position, the patient symptoms are aggravated by any movement, bending. Associated signs and symptoms: Pertinent negatives: abdominal pain, chest pain, constipation, dysuria, fever, headache, hematuria, incontinence, nausea, numbness, tingling, urinary retention, vomiting, weakness. Severity of symptoms: At their worst the symptoms were moderate, in the emergency department the symptoms have improved. The patient has experienced similar episodes in the past. Pt reports has had back pain before, has known "slipped disc", no new injury but bends and cleans, no direct trauma or fall. No radiation of pain. No bowel/bladder issues. No abd pain or vomiting/diarrhea. . Historical: - Allergies: 18:40 No Known Allergies; nj1 - PMHx: 18:40 Asthma; nj1 - PSHx: 18:40 None; nj1 - Immunization history:: Client reports receiving the 2nd dose of the Covid vaccine. - Social history:: Smoking status: Reported history of juuling and/or vaping. - Family history:: not pertinent. - Hospitalizations: : No recent hospitalization is reported. ROS: 18:40 Constitutional: Negative for fever, chills, and weight loss, Cardiovascular: Negative rn for chest pain, palpitations, and edema, Respiratory: Negative for shortness of breath, cough, wheezing, and pleuritic chest pain, Abdomen/GI: Negative for abdominal pain, nausea, vomiting, diarrhea, and constipation, Back: + low back pain : Negative for injury, bleeding, discharge, and swelling, MS/Extremity: Negative for injury and deformity, Neuro: Negative for headache, weakness, numbness, tingling, and seizure. Exam: 18:40 Constitutional: This is a well developed, well nourished patient who is awake, alert, rn and in no acute distress. Cardiovascular: Regular rate and rhythm. No pulse deficits. Respiratory: No increased work of breathing, no retractions or nasal flaring. Abdomen/GI: Soft, non-tender Back: No spinal tenderness. No costovertebral tenderness. MS/ Extremity: Pulses equal, no cyanosis. Neurovascular intact. Full, normal range of motion. Equal circumference. Neuro: Awake and alert, GCS 15, oriented to person, place, time, and situation. Vital Signs: 18:36 BP 127 / 79; Pulse 75; Resp 18; Temp 98.1; Pulse Ox 100% ; Weight 81.65 kg; Height 5 nj1 ft. 8 in. ; Pain 7/10; 18:36 Body Mass Index 27.37 (81.65 kg, 172.72 cm) nj 18:36 Pain Scale: Adult nj1 MDM: 18:35 Patient medically screened. rn 18:40 Differential diagnosis: arthritis, strain, sciatica, Herniated disc. Data reviewed: rn vital signs, nurses notes, old medical records, and as a result, I will discharge patient. Counseling: I had a detailed discussion with the patient and/or guardian regarding: the historical points, exam findings, and any diagnostic results supporting the discharge/admit diagnosis, the need for outpatient follow up, to return to the emergency department if symptoms worsen or persist or if there are any questions or concerns that arise at home. Special discussion: I discussed with the patient/guardian in detail that at this point there is no indication for admission to the hospital. It is understood, however, that if the symptoms persist or worsen the patient needs to return immediately for re-evaluation. Administered Medications: No medications were administered Disposition Summary: 01/31/23 18:43 Discharge Ordered Location: Home rn Problem: an acute exacerbation rn Symptoms: have improved rn Condition: Stable rn Diagnosis - Low back pain rn Followup: rn - With: Private Physician - When: As needed - Reason: Recheck today's complaints, Re-evaluation by your physician Discharge Instructions: - Discharge Summary Sheet rn - Musculoskeletal Pain rn Forms: - Medication Reconciliation Form rn - Thank You Letter rn - Antibiotic [employer]om[employer] press feeder - Prescription Opioid Use rn - [email or web address] rn - Work release form nj1 Prescriptions: - Cyclobenzaprine 10 mg Oral Tablet - take 1 tablet by ORAL route every 8 hours As needed; 15 tablet; Refills: 0, rn Product Selection Permitted - Diclofenac Sodium 75 mg Oral tablet,delayed release (DR/EC) - take 1 tablet by ORAL route 2 times per day; 15 tablet; Refills: 0, Product rn Selection Permitted - Medrol (Christ) 4 mg Oral Tablets, Dose Pack - take 1 tablet by ORAL route as directed - follow package instructions; 1 rn packet; Refills: 0, Product Selection Permitted Signatures: Burak Doty MD MD rn RoyceCassandra RN RN nj1
--- NOTE | 2023-01-31 18:43 | ER ---
Nurse's Notes [facility] Name: Armin Bonner Age: 27 yrs Sex: Male : 1995 Arrival Date: 01/31/2023 Time: 18:29 Bed IW2 Private MD: Diagnosis: Low back pain Presentation: 01/31 18:36 Chief complaint: Patient states: Low back pain for about a week. Not known injury. nj1 Getting worse. Coronavirus screen: Vaccine status: Patient reports receiving the 2nd dose of the covid vaccine. Ebola Screen: Patient denies travel to an Ebola-affected area in the 21 days before illness onset. Initial Sepsis Screen: Does the patient meet any 2 criteria? No. Patient's initial sepsis screen is negative. Does the patient have a suspected source of infection? No. Patient's initial sepsis screen is negative. Risk Assessment: Do you want to hurt yourself or someone else? Patient reports no desire to harm self or others. Onset of symptoms was January 24, 2023. 18:36 Method Of Arrival: Ambulatory [facility] 18:36 Acuity: ELSIE 4 nj1 Triage Assessment: 18:45 General: Appears in no apparent distress. comfortable, Behavior is calm, cooperative, nj1 appropriate for age. 18:45 Pain: Complains of pain in back Pain currently is 7 out of 10 on a pain scale. nj1 18:45 Neuro: Level of Consciousness is awake, alert, obeys commands, Oriented to person, nj1 place, time, situation. 18:45 Cardiovascular: Patient's skin is warm and dry. Respiratory: Airway is patent nj1 Respiratory effort is even, unlabored. Musculoskeletal: Reports pain in back. Historical: - Allergies: 18:40 No Known Allergies; nj1 - PMHx: 18:40 Asthma; nj1 - PSHx: 18:40 None; nj1 - Immunization history:: Client reports receiving the 2nd dose of the Covid vaccine. - Social history:: Smoking status: Reported history of juuling and/or vaping. - Family history:: not pertinent. - Hospitalizations: : No recent hospitalization is reported. Screenin:45 [facility] ED Fall Risk Assessment (Adult) History of falling in the last 3 months, nj1 including since admission No falls in past 3 months (0 pts) Confusion or Disorientation No (0 pts) Intoxicated or Sedated No (0 pts) Impaired Gait No (0 pts) Mobility Assist Device Used No (0 pt) Altered Elimination No (0 pt) Score/Fall Risk Level 0 - 2 = Low Risk Oriented to surroundings, Maintained a safe environment, Hourly rounding (assess needs \T\ fall precautionary measures) done. 18:45 Abuse screen: Denies threats or abuse. Denies injuries from another. Nutritional nj1 screening: No deficits noted. Tuberculosis screening: No symptoms or risk factors identified. Vital Signs: 18:36 BP 127 / 79; Pulse 75; Resp 18; Temp 98.1; Pulse Ox 100% ; Weight 81.65 kg; Height 5 nj1 ft. 8 in. ; Pain 7/10; 18:36 Body Mass Index 27.37 (81.65 kg, 172.72 cm) nj1 18:36 Pain Scale: Adult [facility] ED Course: 18:34 Patient arrived in ED. im 18:35 Burak Doty MD is Attending Physician. rn 18:40 Triage completed. nj1 18:41 Arm band placed on left wrist. nj1 18:45 Patient has correct armband on for positive identification. nj1 18:45 No provider procedures requiring assistance completed. nj1 18:50 Patient did not have IV access during this emergency room visit. nj1 Administered Medications: No medications were administered Medication: 18:51 VIS not applicable for this client. nj1 Outcome: 18:43 Discharge ordered by . rn 18:50 Discharged to home ambulatory. nj1 18:50 Condition: good 18:50 Discharge instructions given to patient, Instructed on discharge instructions, follow up and referral plans. medication usage, Demonstrated understanding of instructions, follow-up care, medications, Prescriptions given X 3. 18:52 Patient left the ED. nj1 Signatures: Burak Doty MD MD rn Jaco, Norma, RN RN nj1 Mendoza, Itzel Corrections: (The following items were deleted from the chart) 18:51 18:45 Pain: Complains of pain in back Pain Quality of pain is described as nj1 nj1
[2023-01-31 19:07] VITALS: BP 127/79; TEMP 98.1; O2SAT 100
== END 2023-01-31 18:52 | disposition home or self-care (01) ==
LOC: ER 18:29
DX: M54.50 Low back pain, unspecified (principal)
CPT/HCPCS: 99283

== ENCOUNTER 2024-11-14 13:25 | Emergency (ER) | payer SELFPAY ==
--- OUTSIDE RECORDS SUMMARY | 2024-11-14 13:28 | XMS REPORT | Continuity of Care Document ---
Author Name Unknown Address [address] [facility]. [address] [place] [address] Organization [employer] [place] Address [address] [facility] [address] [place] [address] Care Team Providers Care Surveillance Director Name Role Phone Pcp, Patient Does Not Have A Primary Care Physic jennie ANA LUISA GORMAN Attending Clinician Unavailable Ana Luisa Arroyo Attending Clinician Allergies, Adverse Reactions, Alerts Allergy Name Allergy Type Status Severity Reaction(s) Onset Date Inactive Date Treating Clinician Comments Source COCONUT DRUG INGREDI Active Unknown-Cmnt 01-14 00:00: 00 [facility] STRAWBER RY DRUG INGREDI Active Unknown-Cmnt 01-14 00:00: 00 [facility] Coconut Propensi ty to adverse reaction s Active Unknown - See comments 01-14 00:00: 00 [facility] Strawber ry Propensi ty to adverse reaction s Active Unknown - See comments 01-14 00:00: 00 [facility] Social History Social Habit Start Date Stop Date Quantity Comments Source Sexual orientation U [facility] Sex Assigned At 1995 00:00:00 1995 00:00:00 [facility] Smoking Status Start Date Stop Date Source Tobacco smoking consumption unknown [facility] Medications Ordered Medication Name Filled Medication Name Start Date Stop Date Current Medication? Ordering Clinician Indication Dosage Frequency Signature (SIG) Comments Components Source methocarbam oL (ROBAXIN) tablet 500 mg 3-05 00:00: 00 10-06 23:15 :00 No 500mg 500 mg, Oral, ONCE, 1 dose, On Sat10/07/23 at 1800, ELENI [facility] ibuprofen (IBU) tablet 600 mg 10-06 23:15: 00 10-06 23:14 :00 No 600mg 600 mg, Oral, ONCE, 1 dose, On Sat10/07/23 at 1715, ELENI [facility] ibuprofen 600 mg tablet 10-06 00:00: 00 Yes [id number] 600mg Take 1 tablet by mouth every 8 (eight) hours as needed for Pain (scale 4-6). [facility] methocarbam oL 500 mg tablet 10-06 00:00: 00 Yes [id number] 500mg Take 1 tablet by mouth 3 (three) times daily as needed for Pain (scale 7-10). [facility] traMADOL 50 mg tablet 01-14 00:00: 00 Yes [id number] 50mg Take 1 tablet by mouth every 6 (six) hours as needed for Pain (scale 4-6). [facility] ketorolac 10 mg tablet 01-14 00:00: 00 Yes [id number] 10mg Take 1 tablet by mouth every 6 (six) hours as needed for Pain (scale 4-6). [facility] Vital Signs Vital Name Observation Time Observation Value Comments S carmelo Systolic blood pressure 2023-10-07 22:48:00 107 mm[Hg] [facility] Diastolic blood pressure 2023-10-07 22:48:00 69 mm[Hg] [facility] Heart rate 2023-10-07 22:48:00 71 /min [facility] Body temperature 2023-10-07 22:48:00 36.83 Anamika [facility] Respiratory rate 2023-10-07 22:48:00 18 /min [facility] Body height 2023-10-07 22:48:00 172.7 cm [facility] Body weight 2023-10-07 22:48:00 81.647 kg [facility] BMI 2023-10-07 22:48:00 27.37 kg/m2 [facility] Oxygen saturation in Arterial blood by Pulse oximetry 2023-10-07 22:48:00 99 /min [facility] Procedures Procedure Date / Time Performed Performing Clinicia n Source NOTICE OF PRIVACY PRACTICES 2023-10-07 22:40:54 Doctor Unassigned, [place] [facility] CONSENT/REFUSAL FOR DIAGNOSIS AND TREATMENT 2023-10-07 22:40:12 Doctor Unassigned, [place] [facility] Encounters Start Date/Time End Date/Time Encounter Type Admission Type Attending Clinicians Care Facility Care Department Encounter ID Source 2023-10-07 16:49:00 2023-10-07 17:21:00 Emergency X ANA LUISA GORMAN [facility] ERT [id number] [facility] 2023-10-07 16:49:00 2023-10-07 17:21:00 Emergency Ana Luisa Gorman [facility] [id number] [facility] Notes Date/Time Note Provider Source 2023-10-07 17:19:53 Pt given printed and verbal discharge instructions regarding low back pain, encouraged hydration, 2 Prescriptions provided Discussed ibuprofen and to take with food to avoid GI distress. Pt verbalized understanding of instructions, pt awake alert oriented, resp reg unlabored, skin w/d, color appropriate for race, moves all ext well,pt encouraged to follow up with pcp Advised to seek medical attention for new/prolonged/worsening of symptoms, No adverse reaction to meds given in ER noted upon discharge Awake, alert oriented, resp reg unlabored, skin w/d, pt leaving amb with steady gait, in no apparent distress, LLED NURSE Phoebe Snyder RN [facility] - Health 2023-10-07 16:47:59 Patient to ED for low back pain. Ongoing for 2 weeks and got worse. He missed work today. No known injury or trauma. Reports he had a "slipped disc" last year. 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 LLED NURSE Evin Diaz RN [facility]
[2024-11-14 14:49] LABS: Influenza A Ag Negative; Influenza B Ag Negative; SARS-CoV-2 Antigen Rapid Res Negative (Negative)
--- NOTE | 2024-11-14 14:55 | EDPHYS ---
Physician Documentation [facility] Name: Armin Bonner Age: 29 yrs Sex: Male : 1995 Arrival Date: 11/14/2024 Time: 13:25 Bed 10 Private MD: ED Physician Gabino Odonnell HPI: 11/14 14:05 This 29 yrs old Black Male presents to ER via Ambulatory with complaints of Flu cp Symptoms. 14:05 The patient presents with sore throat. cp 14:05 The patient describes throat pain as constant. Onset: The symptoms/episode cp began/occurred 3 day(s) ago. Associated signs and symptoms: Pertinent positives: fever, body aches, Pertinent negatives cough, diarrhea, vomiting. Historical: - Allergies: 14:02 No Known Allergies; cm10 - Home Meds: 14:02 None [Active]; cm10 - PMHx: 14:02 Asthma; cm10 - PSHx: 14:02 None; cm10 - Immunization history:: Adult Immunizations unknown. - Infectious Disease History:: Denies. - Social history:: Smoking status: Patient reports the use of cigarette tobacco products, denies chronic smoking, but will smoke occasionally. ROS: 14:10 Constitutional: Positive for body aches, Negative for poor PO intake, cp 14:10 Eyes: Negative for injury, pain, redness, and discharge, cp 14:10 ENT: Positive for sore throat, Negative for drainage from ear(s), ear pain, difficulty swallowing, difficulty handling secretions, 14:10 Respiratory: Negative for cough, shortness of breath, wheezing, 14:10 Abdomen/GI: Negative for abdominal pain, vomiting, diarrhea, constipation, 14:10 All other systems are negative, Exam: 14:15 Constitutional: The patient appears in no acute distress, alert, awake, non-toxic, well cp developed, well nourished, 14:15 Head/Face: Normocephalic, atraumatic. cp 14:15 Eyes: Periorbital structures: appear normal, Conjunctiva: normal, no exudate, no injection, Lids and lashes: appear normal, bilaterally, 14:15 ENT: External ear(s): are unremarkable, Ear canal(s): are normal, clear, TM's: dullness, bilaterally, Nose: is normal, Mouth: Lips: moist, Oral mucosa: moist, Posterior pharynx: Airway: no evidence of obstruction, patent, Tonsils: bilaterally enlarged, with erythema, with exudate, Uvula: midline, erythema, that is moderate, 14:15 Neck: Lymph nodes: lymphadenopathy is appreciated, anterior cervical nodes, 14:15 Chest/axilla: Inspection: normal, 14:15 Cardiovascular: Rate: normal, Rhythm: regular, 14:15 Respiratory: the patient does not display signs of respiratory distress, Respirations: normal, no use of accessory muscles, no retractions, labored breathing, is not present, Breath sounds: are clear throughout, no decreased breath sounds, no stridor, no wheezing, 14:15 Abdomen/GI: Exam negative for discomfort, distension, guarding, Inspection: abdomen appears normal, Vital Signs: 14:00 BP 117 / 82; Pulse 81; Resp 15; Temp 98.1(O); Pulse Ox 96% on R/A; Weight 81.65 kg; cm10 Height 5 ft. 9 in. ; Pain 7/10; 15:01 BP 114 / 78; Pulse 80; Resp 15; Temp 98.2; Pulse Ox 99% ; me1 14:00 Body Mass Index 26.58 (81.65 kg, 175.26 cm) cm10 14:00 Pain Scale: Adult cm10 MDM: 13:59 Medical Screening Exam initiated cp 14:25 Differential diagnosis: epiglottitis, group A strep tonsillitis, laryngitis, cp mononucleosis, peritonsillar abscess Mycoplasma Pharyngitis retropharyngeal abcess tonsillitis, uvulitis. 14:53 Data reviewed: vital signs, nurses notes, lab test result(s), and as a result, I will cp discharge patient. 11/14 14:02 Order name: Group A Streptococcus Rapid cp 11/14 14:02 Order name: COVID-19 Ag + Flu A+B Ag cp Administered Medications: 15:01 Drug: Amoxicillin-Clavulanate PO 875 mg PO once Route: PO; me1 15:01 Follow up: Response: No adverse reaction me1 15:01 Drug: GI Cocktail without - (Maalox PO 30 ml, Lidocaine Mucous Membrane 2 % 15 me1 ml) PO once Route: PO; 15:01 Follow up: Response: No adverse reaction; Pain is decreased me1 Disposition Summary: 11/14/24 14:54 Discharge Ordered Notes: Location: Home cp Problem: new cp Symptoms: have improved cp Condition: Stable cp Diagnosis - Streptococcal tonsillitis cp Followup: cp - With: Private Physician - When: 2 - 3 days - Reason: Worsening of condition Discharge Instructions: - Discharge Summary Sheet cp - Strep Throat, Adult cp - Tonsillitis cp Forms: - Medication Reconciliation Form cp - Antibiotic Education cp - Prescription Opioid Use cp - Patient Portal Instructions cp - Leadership Thank You Letter cp - Work release form me1 Prescriptions: - Augmentin 875-125 mg Oral Tablet - take 1 tablet ORAL route every 12 hours for 10 days; 20 tablet; Refills: 0, cp Product Selection Permitted - Ibuprofen 800 mg Oral Tablet - take 1 tablet ORAL route every 8 hours As needed take with food; 30 tablet; cp Refills: 0, Product Selection Permitted Addendum: 11/16/2024 09:19 Co-signature as Attending Physician, Gabino Odonnell MD I reviewed the patient's care r t provided by the Advanced Practice Provider and agree with the diagnosis and treatment plan. Signatures: Dispatcher [employer] Kvng Armas PA PA cp Gabino Odonnell MD MD rt Alise Gupta RN RN cm10 Renetta Camarena RN RN me1
--- NOTE | 2024-11-14 14:55 | ER ---
Nurse's Notes [facility] Name: Armin Bonner Age: 29 yrs Sex: Male : 1995 Arrival Date: 11/14/2024 Time: 13:25 Bed 10 Private MD: Diagnosis: Streptococcal tonsillitis Presentation: 11/14 14:00 Chief complaint: Patient states: sore throat onset 3 days ago. pt reports chills and cm10 body aches,. Coronavirus screen: Client denies travel out of the [place] in the last 14 days. Ebola Screen: Patient denies travel to an Ebola-affected area in the 21 days before illness onset. Initial Sepsis Screen: Does the patient meet any 2 criteria? No. Patient's initial sepsis screen is negative. Does the patient have a suspected source of infection? No. Patient's initial sepsis screen is negative. Risk Assessment: Do you want to hurt yourself or someone else? Patient reports no desire to harm self or others. Onset of symptoms was November 11, 2024. 14:00 Method Of Arrival: Ambulatory cm10 14:00 Acuity: ELSIE 4 cm10 Triage Assessment: 14:02 General: Appears uncomfortable, Behavior is calm, cooperative. Pain: Complains of pain cm10 in neck Pain currently is 7 out of 10 on a pain scale. EENT: Throat is reddened Reports pain when swallowing. Neuro: No deficits noted. Level of Consciousness is awake, alert, obeys commands, Oriented to person, place, time, situation, Appropriate for age. Respiratory: No deficits noted. Airway is patent Respiratory effort is even, unlabored, Respiratory pattern is regular, symmetrical. Historical: - Allergies: 14:02 No Known Allergies; cm10 - Home Meds: 14:02 None [Active]; cm10 - PMHx: 14:02 Asthma; cm10 - PSHx: 14:02 None; cm10 - Immunization history:: Adult Immunizations unknown. - Infectious Disease History:: Denies. - Social history:: Smoking status: Patient reports the use of cigarette tobacco products, denies chronic smoking, but will smoke occasionally. Screenin:22 [facility] ED Fall Risk Assessment (Adult) History of falling in the last 3 months, me1 including since admission No falls in past 3 months (0 pts) Confusion or Disorientation No (0 pts) Intoxicated or Sedated No (0 pts) Impaired Gait No (0 pts) Mobility Assist Device Used No (0 pt) Altered Elimination No (0 pt) Score/Fall Risk Level 0 - 2 = Low Risk Maintained a safe environment, Provided non-skid footwear, Hourly rounding (assess needs \T\ fall precautionary measures) done. Abuse screen: Denies threats or abuse. Nutritional screening: No deficits noted. Tuberculosis screening: No symptoms or risk factors identified. Assessment: 14:22 General: Appears ill, well groomed, well developed, well nourished, Behavior is calm, me1 cooperative, appropriate for age, Reports sore throat onset 3 days ago. pt reports chills and body aches,. Pain: Complains of pain in neck Pain does not radiate. Pain Quality of pain is described as aching, tender, Pain began 2-3 days ago. Is continuous. Neuro: Level of Consciousness is awake, alert, obeys commands, Oriented to person, place, time, situation, Appropriate for age. Cardiovascular: Patient's skin is warm and dry. Respiratory: Airway is patent Respiratory effort is even, unlabored, Respiratory pattern is regular, symmetrical. GI: No signs and/or symptoms were reported involving the gastrointestinal system. : No signs and/or symptoms were reported regarding the genitourinary system. EENT: Reports pain when swallowing. Derm: Skin is intact, is healthy with good turgor, Skin is pink, warm \T\ dry. Musculoskeletal: No signs and/or symptoms reported regarding the musculoskeletal system. Vital Signs: 14:00 BP 117 / 82; Pulse 81; Resp 15; Temp 98.1(O); Pulse Ox 96% on R/A; Weight 81.65 kg; cm10 Height 5 ft. 9 in. ; Pain 7/10; 15:01 BP 114 / 78; Pulse 80; Resp 15; Temp 98.2; Pulse Ox 99% ; me1 14:00 Body Mass Index 26.58 (81.65 kg, 175.26 cm) cm10 14:00 Pain Scale: Adult cm10 ED Course: 13:28 Patient arrived in ED. cj3 13:31 Kvng Colmenares PA is PHCP. cp 13:31 Gabino Odonnell MD is Attending Physician. cp 14:01 Triage completed. cm10 14:02 Arm band placed on right wrist. Patient placed in an exam room, on a stretcher. cm10 14:06 COVID-19 Ag + Flu A+B Ag Sent. cm10 14:06 Group A Streptococcus Rapid Sent. cm10 14:06 COVID swab sent to lab. Strep swab sent to lab. cm10 14:21 Renetta Camarena, RN is Primary Nurse. me1 14:22 Patient has correct armband on for positive identification. Bed in low position. Call me1 light in reach. Side rails up X 1. Provided Education on: POC. Verbalized understanding.. Client placed on continuous cardiac and pulse oximetry monitoring. NIBP monitoring applied. Pulse ox on. NIBP on. 14:22 No provider procedures requiring assistance completed. me1 15:07 Patient did not have IV access during this emergency room visit. me1 Administered Medications: 15:01 Drug: Amoxicillin-Clavulanate PO 875 mg PO once Route: PO; me1 15:01 Follow up: Response: No adverse reaction me1 15:01 Drug: GI Cocktail without - (Maalox PO 30 ml, Lidocaine Mucous Membrane 2 % 15 me1 ml) PO once Route: PO; 15:01 Follow up: Response: No adverse reaction; Pain is decreased me1 Medication: 14:22 VIS not applicable for this client. me1 Outcome: 14:54 Discharge ordered by MD. cp 15:07 Discharged to home ambulatory, me1 15:07 Condition: stable 15:07 Discharge instructions given to patient, Instructed on discharge instructions, follow up and referral plans. medication usage, Demonstrated understanding of instructions, follow-up care, medications, Prescriptions given X 2, 15:07 Patient left the ED. me1 Signatures: Kvng Colmenares PA PA Alise Alonso, RN RN cm10 Renetta Camarena, RN RN me1 Griselda Antoine cj3 Corrections: (The following items were deleted from the chart) 14:22 14:00 Chief complaint: Patient states: sore throat onset 3 days ago. pt reports chills me1 and body aches,. cm10
[2024-11-14] MEDS ORDERED: AMOX/K CLAV 875 MG TAB ONE (14:58)
[2024-11-14] MEDS ORDERED: MAGNES/ALUMIN/SIMET 30ML UCUP ONE (14:58)
[2024-11-14] MEDS ORDERED: LIDOCAINE VISCOUS 2% 10ML ORAL SOLN ONE (14:59)
== END 2024-11-14 15:07 | disposition home or self-care (01) ==
LOC: ER 13:25
DX: J03.00 Acute streptococcal tonsillitis, unspecified (principal); Z11.52 Encounter for screening for COVID-19
CPT/HCPCS: 36415; 87428; 99284

== ENCOUNTER 2024-11-30 12:11 | Emergency (ER) | payer SELFPAY ==
--- OUTSIDE RECORDS SUMMARY | 2024-11-30 12:14 | XMS REPORT | Continuity of Care Document ---
Author Name Unknown Address [address] [facility]. [address] [place] [address] Organization [employer] [place] Address [address] [facility] [address] [place] [address] Care Team Providers Care Client Support Representative Name Role Phone Pcp, Patient Does Not Have A Primary Care Physic jennie ANA LUISA GORMAN Attending Clinician Unavailable Ana Luisa Arroyo Attending Clinician [phone] Allergies, Adverse Reactions, Alerts Allergy Name Allergy Type Status Severity Reaction(s) Onset Date Inactive Date Treating Clinician Comments Source COCONUT DRUG INGREDI Active Unknown-Cmnt 01-14 00:00: 00 [facility] STRAWBER RY DRUG INGREDI Active Unknown-Cmnt 01-14 00:00: 00 [facility] Coconut Propensi ty to adverse reaction s Active Unknown - See comments 01-14 00:00: 00 [facility] Strawber ry Propensi ty to adverse reaction s Active Unknown - See comments 01-14 00:00: 00 [facility] Social History Social Habit Start Date Stop Date Quantity Comments Source Sexual orientation U [facility] Sex Assigned At 1995 00:00:00 1995 00:00:00 [facility] Smoking Status Start Date Stop Date Source Tobacco smoking consumption unknown [facility] Medications Ordered Medication Name Filled Medication Name Start Date Stop Date Current Medication? Ordering Clinician Indication Dosage Frequency Signature (SIG) Comments Components Source methocarbam oL (ROBAXIN) tablet 500 mg 3-05 00:00: 00 10-06 23:15 :00 No 500mg 500 mg, Oral, ONCE, 1 dose, On Sat10/07/23 at 1800, ELENI [facility] ibuprofen (IBU) tablet 600 mg 10-06 23:15: 00 10-06 23:14 :00 No 600mg 600 mg, Oral, ONCE, 1 dose, On Sat10/07/23 at 1715, ELENI [facility] ibuprofen 600 mg tablet 10-06 00:00: 00 Yes [id number] 600mg Take 1 tablet by mouth every 8 (eight) hours as needed for Pain (scale 4-6). [facility] methocarbam oL 500 mg tablet 10-06 00:00: 00 Yes [id number] 500mg Take 1 tablet by mouth 3 (three) times daily as needed for Pain (scale 7-10). [facility] traMADOL 50 mg tablet 01-14 00:00: 00 Yes [id number] 50mg Take 1 tablet by mouth every 6 (six) hours as needed for Pain (scale 4-6). [facility] ketorolac 10 mg tablet 01-14 00:00: 00 Yes [id number] 10mg Take 1 tablet by mouth every 6 (six) hours as needed for Pain (scale 4-6). [facility] Vital Signs Vital Name Observation Time Observation Value Comments S carmelo Systolic blood pressure 2023-10-07 22:48:00 107 mm[Hg] [facility] Diastolic blood pressure 2023-10-07 22:48:00 69 mm[Hg] [facility] Heart rate 2023-10-07 22:48:00 71 /min [facility] Body temperature 2023-10-07 22:48:00 36.83 Anamika [facility] Respiratory rate 2023-10-07 22:48:00 18 /min [facility] Body height 2023-10-07 22:48:00 172.7 cm [facility] Body weight 2023-10-07 22:48:00 81.647 kg [facility] BMI 2023-10-07 22:48:00 27.37 kg/m2 [facility] Oxygen saturation in Arterial blood by Pulse oximetry 2023-10-07 22:48:00 99 /min [facility] Procedures Procedure Date / Time Performed Performing Clinicia n Source NOTICE OF PRIVACY PRACTICES 2023-10-07 22:40:54 Doctor Unassigned, [place] [facility] CONSENT/REFUSAL FOR DIAGNOSIS AND TREATMENT 2023-10-07 22:40:12 Doctor Unassigned, [place] [facility] Encounters Start Date/Time End Date/Time Encounter Type Admission Type Attending Clinicians Care Facility Care Department Encounter ID Source 2023-10-07 16:49:00 2023-10-07 17:21:00 Emergency X ANA LUISA GORMAN [facility] ERT [id number] [facility] 2023-10-07 16:49:00 2023-10-07 17:21:00 Emergency Ana Luisa Gorman [facility] [id number] [facility] Notes Date/Time Note Provider Source 2023-10-07 17:19:53 [...] with steady gait, in no apparent distress, AL PLATE FILLER Phoebe Snyder RN [facility] - Health 2023-10-07 16:47:59 Patient to ED for low back pain. Ongoing for 2 weeks and got worse. He missed work today. No known injury or trauma. Reports he had a "slipped disc" last year. 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 AL PLATE FILLER Evin Diaz RN [facility]
[2024-11-30] MEDS ORDERED: IBUPROFEN 400 MG TAB ONE (12:30)
[2024-11-30 13:03] LABS: Influenza A Ag Negative; Influenza B Ag Negative
[2024-11-30 13:05] LABS: SARS-CoV-2 Antigen Rapid Res Positive (Negative)
--- NOTE | 2024-11-30 13:11 | EDPHYS ---
Physician Documentation [facility] Name: Armin Bonner Age: 29 yrs Sex: Male : 1995 Arrival Date: 11/30/2024 Time: 12:11 Bed DX3 Private MD: ED Physician Burak Doty HPI: 11/30 12:31 This 29 yrs old Black Male presents to ER via Ambulatory with complaints of body aches, rn Headache. 12:31 The patient complains of pain to the top of head. rn 12:31 The patient or guardian reports flu symptoms, low-grade fever, myalgias. Onset: The rn symptoms/episode began/occurred yesterday. Severity of symptoms: At their worst the symptoms were mild, in the emergency department the symptoms are unchanged. Modifying factors: The symptoms are alleviated by nothing, the symptoms are aggravated by nothing. The patient has experienced similar episodes in the past. Patient reports had strep throat 2 weeks ago, is still taking the antibiotics intermittently. Patient reports overall the symptoms are feeling better. Reports started yesterday with nasal congestion, headache, subjective fever, myalgias. No vomiting but does report mild diarrhea. Nonbloody. Reports generalized weakness and malaise. Denies cough or shortness of breath.. Historical: - Allergies: 12:29 No Known Allergies; ld1 - Home Meds: 12:29 None [Active]; ld1 - PMHx: 12:29 Asthma; ld1 - PSHx: 12:29 None; ld1 - Immunization history:: Adult Immunizations up to date. - Infectious Disease History:: Denies. - Social history:: Smoking status: Patient denies any tobacco usage or history of. - Family history:: not pertinent. - Hospitalizations: : No recent hospitalization is reported. ROS: 12:31 Constitutional: Positive for subjective fever ENT: Positive for nasal congestion learning disabilities teacher: Negative for chest pain, palpitations, and edema, Respiratory: Negative for shortness of breath, cough, wheezing, and pleuritic chest pain, Abdomen/GI: Negative for abdominal pain, positive for diarrhea MS/Extremity: Negative for injury and deformity, Skin: Negative for injury, rash, and discoloration, Neuro: Positive for generalized weakness and malaise Exam: 12:31 Constitutional: This is a well developed, well nourished patient who is awake, alert, rn and in no acute distress. Head/Face: Normocephalic, atraumatic. ENT: Mild tonsillar hypertrophy, no exudate, no stridor Neck: Neck supple. No Meningismus. Cardiovascular: Regular rate and rhythm. No pulse deficits. Respiratory: Speaking full sentences, unlabored. No increased work of breathing, no retractions or nasal flaring. Abdomen/GI: Soft, non-tender MS/ Extremity: Pulses equal, no cyanosis. Neuro: Awake and alert, GCS 15 Vital Signs: 12:29 Pulse 70; Resp 18; Temp 97.6(TE); Pulse Ox 94% on R/A; Weight 81.65 kg; Height 5 ft. 9 ld1 in. ; Pain 0/10; 12:31 BP 134 / 87; ld1 12:29 Body Mass Index 26.58 (81.65 kg, 175.26 cm) ld1 12:29 Pain Scale: Adult ld1 MDM: 12:14 Medical Screening Exam initiated rn 13:10 Differential Diagnosis: Bronchitis Influenza Upper Respiratory Infection Sinusitis rn Viral Syndrome. Data reviewed: vital signs, nurses notes, lab test result(s), and as a result, I will discharge patient. Counseling: I had a detailed discussion with the patient and/or guardian regarding the historical points, exam findings, and any diagnostic results supporting the discharge/admit diagnosis, lab results, the need for outpatient follow up, to return to the emergency department if symptoms worsen or persist or if there are any questions or concerns that arise at home. Special discussion: I discussed with the patient/guardian in detail that at this point there is no indication for admission to the hospital. It is understood, however, that if the symptoms persist or worsen the patient needs to return immediately for re-evaluation. 11/30 12:24 Order name: COVID-19 Ag + Flu A+B Ag; Complete Time: 13:10 ld1 Administered Medications: 12:37 Drug: Ibuprofen PO 800 mg PO once Route: PO; ld1 Disposition Summary: 11/30/24 13:11 Discharge Ordered Notes: Location: Home rn Problem: new rn Symptoms: have improved rn Condition: Stable rn Diagnosis - SARS-associated coronavirus as the cause of diseases classified elsewhere rn Followup: rn - With: Private Physician - When: As needed - Reason: Recheck today's complaints, Re-evaluation by your physician Discharge Instructions: - Discharge Summary Sheet rn - COVID-19 rn - 10 Things You Can Do to Manage Your COVID-19 Symptoms at Home - [facility] (02/17/2021) rn - Viral Illness, Adult rn Forms: - Work release form bd - Medication Reconciliation Form rn - Antibiotic english horn player - Prescription Opioid Use rn - Patient Portal Instructions rn - Leadership Thank You Letter rn Signatures: Dispatcher [employer] Burak Fu MD MD rn Sims, Lauren, RN RN ld1
--- NOTE | 2024-11-30 13:11 | ER ---
Nurse's Notes [facility] Name: Armin Bonner Age: 29 yrs Sex: Male : 1995 Arrival Date: 11/30/2024 Time: 12:11 Bed DX3 Private MD: Diagnosis: SARS-associated coronavirus as the cause of diseases classified elsewhere Presentation: 11/30 12:29 Chief complaint: Patient states: Body aches and headache since last night. Coronavirus ld1 screen: At this time, the client does not indicate any symptoms associated with coronavirus-19. Ebola Screen: No symptoms or risks identified at this time. Initial Sepsis Screen: Does the patient meet any 2 criteria? No. Patient's initial sepsis screen is negative. Does the patient have a suspected source of infection? No. Patient's initial sepsis screen is negative. Risk Assessment: Do you want to hurt yourself or someone else? Patient reports no desire to harm self or others. Onset of symptoms was November 30, 2024. 12: Method Of Arrival: Ambulatory ld1 12:29 Acuity: ELSIE 4 ld1 Triage Assessment: 12:29 Headache History: The patient has had previous headaches and this one is similar to ld1 previous episodes. General: Appears in no apparent distress. comfortable, Behavior is calm, cooperative, appropriate for age. Pain: Complains of pain in face Pain does not radiate. Pain currently is 8 out of 10 on a pain scale. Quality of pain is described as throbbing, Pain began 1 day ago. Is continuous, Also complains of no other associated symptoms. EENT: No signs and/or symptoms were reported regarding the EENT system. Neuro: Level of Consciousness is awake, alert, obeys commands, Oriented to person, place, time, situation. Cardiovascular: Capillary refill < 3 seconds Patient's skin is warm and dry. Respiratory: Airway is patent Respiratory effort is even, unlabored. GI: Abdomen is flat, non-distended. GI: Reports diarrhea. : No signs and/or symptoms were reported regarding the genitourinary system. Derm: No signs and/or symptoms reported regarding the dermatologic system. Musculoskeletal: No signs and/or symptoms reported regarding the musculoskeletal system. Historical: - Allergies: : No Known Allergies; ld1 - Home Meds: :29 None [Active]; ld1 - PMHx: 12:29 Asthma; ld1 - PSHx: 12:29 None; ld1 - Immunization history:: Adult Immunizations up to date. - Infectious Disease History:: Denies. - Social history:: Smoking status: Patient denies any tobacco usage or history of. - Family history:: not pertinent. - Hospitalizations: : No recent hospitalization is reported. Screenin:20 [facility] ED Fall Risk Assessment (Adult) History of falling in the last 3 months, ld1 including since admission No falls in past 3 months (0 pts) Confusion or Disorientation No (0 pts) Intoxicated or Sedated No (0 pts) Impaired Gait No (0 pts) Mobility Assist Device Used No (0 pt) Altered Elimination No (0 pt) Score/Fall Risk Level 0 - 2 = Low Risk Oriented to surroundings, Hourly rounding (assess needs \T\ fall precautionary measures) done. Abuse screen: Denies threats or abuse. Denies injuries from another. Nutritional screening: No deficits noted. Tuberculosis screening: No symptoms or risk factors identified. Assessment: 13:20 Reassessment: See triage assessment. Pain: Denies pain. ld1 Vital Signs: 12:29 Pulse 70; Resp 18; Temp 97.6(TE); Pulse Ox 94% on R/A; Weight 81.65 kg; Height 5 ft. 9 ld1 in. ; Pain 0/10; 12:31 BP 134 / 87; ld1 12:29 Body Mass Index 26.58 (81.65 kg, 175.26 cm) ld1 12:29 Pain Scale: Adult ld1 ED Course: 12:14 Patient arrived in ED. mr 12:14 Burak Doty MD is Attending Physician. rn 12:29 Arm band placed on right wrist. ld1 12:30 Triage completed. ld1 12:37 COVID-19 Ag + Flu A+B Ag Sent. ld1 13:13 Eva Rain, MARI is Primary Nurse. iw 13:20 Patient has correct armband on for positive identification. ld1 13:20 No provider procedures requiring assistance completed. Patient did not have IV access ld1 during this emergency room visit. Administered Medications: 12:37 Drug: Ibuprofen PO 800 mg PO once Route: PO; ld1 Medication: 13:20 VIS not applicable for this client. ld1 Outcome: 13:11 Discharge ordered by . rn 13:20 Discharged to home ambulatory, ld1 13:20 Condition: stable 13:20 Discharge instructions given to patient, Instructed on discharge instructions, follow up and referral plans. Demonstrated understanding of instructions, follow-up care, 13:21 Patient left the ED. ld1 Signatures: Kiley Mast, Reg Reg mr Eva Rain, RN Burak Prescott MD MD rn Sims, Lauren, RN RN ld1
[2024-12-01 15:37] VITALS: TEMP 97.6; O2SAT 94
[2024-12-01 15:38] VITALS: BP 134/87
== END 2024-11-30 13:21 | disposition home or self-care (01) ==
LOC: ER 12:11
DX: U07.1 COVID-19 (principal)
CPT/HCPCS: 36415; 87428; 99283